=== PATIENT | male | born 2005 | race Hispanic/Latino ===

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

== ENCOUNTER 2024-05-15 13:59 | Emergency (ER) | payer BC, MEDICAID ==
[~2024-05-15] VITALS: Ht 172.7 cm; Wt 75.7 kg
--- NOTE | 2024-05-15 14:16 | EKG ---
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
[2024-05-15] MEDS: 0.9%NACL 1000ML 1,000 ML IV ONE (15:00)
[2024-05-15 15:01] LABS: APPEARANCE,URINE CLEAR (CLEAR); BILIRUBIN,URINE NEGATIVE (NEGATIVE); COLOR,URINE COLORLESS (YELLOW); GLUCOSE, URINE (UA) NEGATIVE (NEGATIVE); KETONES,URINE NEGATIVE (NEGATIVE); LEUKOCYTE ESTERASE ,URINE NEGATIVE Leu/uL (NEGATIVE); NITRATE,URINE NEGATIVE (NEGATIVE); OCCULT BLOOD,URINE NEGATIVE (NEGATIVE); PH,URINE 6.5 (5.0-8.0); PROTEIN,URINE NEGATIVE (NEGATIVE); UROBILINOGEN,URINE 0.2 mg/dL (0.2-1.0)
[2024-05-15 15:02] LABS: ADD UA MICROSCOPIC NO
[2024-05-15 15:15] LABS: AMPHET/METH SCREEN,URINE NEGATIVE (NEGATIVE); BARBITURATE SCREEN, URINE NEGATIVE (NEGATIVE); BENZODIAZEPINES SCREEN,URINE NEGATIVE (NEGATIVE); CANNABINOID SCREEN,URINE NEGATIVE (NEGATIVE); COCAINE SCREEN,URINE NEGATIVE (NEGATIVE); OPIATE SCREEN,URINE NEGATIVE (NEGATIVE); PHENCYCLIDINE SCREEN,URINE NEGATIVE (NEGATIVE)
[2024-05-15 15:27] LABS: BASOPHILS # (AUTO) 0.04 K/uL (0.00-0.20); BASOPHILS % (AUTO) 0.4 % (0.0-5.0); EOSINOPHILS # (AUTO) 0.06 K/uL (0.00-0.70); EOSINOPHILS % (AUTO) 0.6 % (0.0-8.0); HEMATOCRIT 42.8 % (42-54); IMMATURE GRANULOCYTE ABSOLUTE 0.04 K/uL (0-1); LYMPHOCYTES # (AUTO) 1.8 K/uL (1.0-4.8); LYMPHOCYTES % (AUTO) 16.6 % (21.0-51.0); MEAN CORPUSCULAR HEMOGLOBIN 28.2 pg (27.0-33.0); MEAN CORPUSCULAR HGB CONC 34.1 g/dL (32.0-36.0); MEAN CORPUSCULAR VOLUME 82.8 fL (80-100); MONOCYTES # (AUTO) 0.7 K/uL (0.1-1.0); MONOCYTES % (AUTO) 6.4 % (3.0-13.0); NEUTROPHILS # (AUTO) 8.2 K/uL (1.8-7.7); NEUTROPHILS % (AUTO) 75.6 % (40.0-77.0); PLATELET COUNT (AUTO) 259 K/uL (130-400); RED BLOOD CELL COUNT(AUTO) 5.17 MIL/uL (4.50-6.20); RED CELL DISTRIBUTION WIDTH 12.6 % (11.0-15.5); WHITE BLOOD COUNT (AUTO) 10.9 K/uL (4.8-10.8)
[2024-05-15 15:39] LABS: CREATININE 0.8 mg/dL (0.5-1.3); POTASSIUM 3.3 mmol/L (3.5-5.1)
[2024-05-15 15:42] LABS: MAGNESIUM 1.7 mg/dL (1.80-2.40)
--- NOTE | 2024-05-15 15:54 | ERN ---
General Chief Complaint: Withdrawl Stated Complaint: ALCOHOL WITHDRAWLS Time Seen by MD: 14:02 Time Seen by Midlevel: 14:02 Source: patient History of Present Illness Initial Comments Patient is a 18-year-old male with a past medical history of alcohol abuse presenting to the emergency department with palpitations. Patient believes he may be withdrawing from alcohol. However he does report he was an extensive history of anxiety. He reports that for the last two months he usually smokes 12 packs of beer per day. He last use alcohol two days ago. He currently denies any suicidal ideation, homicidal ideation, auditory/visual hallucinations. No other symptoms reported at this time Allergies: Coded Allergies: No Known Allergies (Unverified Allergy, Unknown, 05/15/24) Past Medical History Past Medical History: Alcoholism Past Surgical History: None ROS Dictation CONSTITUTIONAL: Negative except for HPI HEAD/FACE: Negative except for HPI EENT: Negative except for HPI RESPIRATORY: Negative except for HPI GASTROINTESTINAL/ABDOMINAL: Negative except for HPI GENITOURINARY: Negative except for HPI MUSCULOSKELETAL: Negative except for HPI INTEGUMENTARY: Negative except for HPI NEUROLOGICAL/PSYCH: Negative except for HPI HEMATOLOGIC/LYMPHATIC: Negative except for HPI All Systems Negative, Except as noted above. 13 point review of systems assessed and all negative except for above. Physical Exam Physical Exam Dictation Vital Signs reviewed General Appearance: Alert, oriented x 3, no acute distress, well developed, nourished. Head and Face: non-traumatic. Eyes: PERRL, pink conjunctivas, eyelid no trauma, anterior chamber with arcus senilis. Ears: Pinnas intact and no signs of trauma or erythema ear canals clear and no discharge TM no erythema Nose: No discharge, no bleeding. Oropharynx: Mouth normal, tongue pink, pharynx clear,no erythema, tonsils no exudates, no abscesses noted, mucous membrane moist Neck: Supple, non-tender, no thyromegaly, no masses, no JVD, no bruits Breast:Deferred Chest:No tenderness, no crepitus, no paradoxical movement, no retractions Lungs:Clear, well-ventilated, symmetric, no rales, no wheezing, no rhonchi, no stridor, good breath sounds bilaterally Heart: Regular rate, regular rhythm, no murmur, no gallops Vascular: no peripheral edema, Abdomen: Soft, positive bowel sounds, nondistended, no guarding, nontender, no rebound, no masses no hepatomegaly, no splenomegaly, no Toro's sign, no hernias. Rectal: Deferred Genital: Deferred Neurological: Normal speech, motor function intact, sensory function intact Musculoskeletal: Neck nontender, full range of motion, back nontender, full range of motion, Extremities: nontender, full range of motion Skin: Color pink, dry, no turgor, no rash, no lacerations, no abrasions, no contusions. Lymphatic: Deferred Results Laboratory and Microbiology Lab and Micro Result Laboratory Tests Test 05/15/24 14:10 05/15/24 15:05 Urine Color COLORLESS (YELLOW) Urine Appearance CLEAR (CLEAR) Urine pH 6.5 (5.0-8.0) Urine Specific [place] 1.004 (1.001-1.031) Urine Protein NEGATIVE mg/dL (NEGATIVE) Urine Glucose (UA) NEGATIVE mg/dL (NEGATIVE) Urine Ketones NEGATIVE mg/dL (NEGATIVE) Urine Occult Blood NEGATIVE (NEGATIVE) Urine Nitrate NEGATIVE (NEGATIVE) Urine Bilirubin NEGATIVE mg/dL (NEGATIVE) Urine Urobilinogen 0.2 mg/dL (0.2-1.0) Urine Leukocyte Esterase NEGATIVE Ivy/uL Urine Opiates Screen NEGATIVE (NEGATIVE) Urine Barbiturates Screen NEGATIVE (NEGATIVE) Urine Phencyclidine Screen NEGATIVE (NEGATIVE) Urine Amphetamines Screen NEGATIVE (NEGATIVE) Urine Benzodiazepines Screen NEGATIVE (NEGATIVE) Urine Cocaine Screen NEGATIVE (NEGATIVE) Urine Marijuana (THC) Screen NEGATIVE (NEGATIVE) White Blood Count 10.9 K/uL (4.8-10.8) H Red Blood Count 5.17 MIL/uL (4.50-6.20) Hemoglobin 14.6 g/dL (14.0-18.0) Hematocrit 42.8 % (42-54) Mean Corpuscular Volume 82.8 fL (80-100) Mean Corpuscular Hemoglobin 28.2 pg (27.0-33.0) Mean Corpuscular Hemoglobin Concent 34.1 g/dL (32.0-36.0) Red Cell Distribution Width 12.6 % (11.0-15.5) Platelet Count 259 K/uL (130-400) Mean Platelet Volume 10.5 fL (7.5-10.5) Immature Granulocyte % (Auto) 0.4 % (0-1) Neutrophils (%) (Auto) 75.6 % (40.0-77.0) Lymphocytes (%) (Auto) 16.6 % (21.0-51.0) L Monocytes (%) (Auto) 6.4 % (3.0-13.0) Eosinophils (%) (Auto) 0.6 % (0.0-8.0) Basophils (%) (Auto) 0.4 % (0.0-5.0) Neutrophils # (Auto) 8.2 K/uL (1.8-7.7) H Lymphocytes # (Auto) 1.8 K/uL (1.0-4.8) Monocytes # (Auto) 0.7 K/uL (0.1-1.0) Eosinophils # (Auto) 0.06 K/uL (0.00-0.70) Basophils # (Auto) 0.04 K/uL (0.00-0.20) Absolute Immature Granulocyte (auto 0.04 K/uL (0-1) Nucleated Red Blood Cells 0.0 % (0.0-0.19) Sodium Level 138 mmol/L (136-145) Potassium Level 3.3 mmol/L (3.5-5.1) L Chloride Level 101 mmol/L (101-111) Carbon Dioxide Level 26 mmol/L (21-32) Blood Urea Nitrogen 10 mg/dL (7-18) Creatinine 0.8 mg/dL (0.5-1.3) Glomerular Filtration Rate Calc 131 mL/min (>90) Random Glucose 91 mg/dL (70-105) Total Calcium 9.8 mg/dL (8.5-10.1) Magnesium Level 1.70 mg/dL (1.80-2.40) L Total Creatine Kinase 222 U/L (21-232) Troponin I High Sensitivity 4 ng/L (4-75) Labs Reviewed?: Yes MDM MDM: Patient is a 18-year-old male with a past medical history of alcohol abuse presenting to the emergency department with palpitations. Patient believes he may be withdrawing from alcohol. However he does report he was an extensive history of anxiety. He reports that for the last two months he usually smokes 12 packs of beer per day. He last use alcohol two days ago. He currently denies any suicidal ideation, homicidal ideation, auditory/visual hallucina tions. No other symptoms reported at this time. Physical examination is unremarkable. CBC is stable. Chemistries are unremarkable. Toxicology is negative. Urine does not show any evidence of infection. CK and troponin are negative. Patient was observed in the ER for over 2 hours and has remained stable. On repeat examination patient was asymptomatic. He reports feeling si gnificantly improved and believes he may have had an anxiety attack. His lab discussed with the patient. Patient will be discharged home return precautions discussed Differential diagnosis: Alcohol withdrawals, electrolyte abnormality, dehydration There are no social concerns with this patient. Prescription drug management Prescriptions will include: None Medical management and examination interpretation discussions were had by me with other qualified healthcare professionals as indicated for the patient's care. ED Course Orders Procedure Category Date Status Time 12 Lead Ekg Tracing- EKG 05/15/24 Resulted Technical 14:07 Urinalysis Profile LAB 05/15/24 Complete 14:07 Drug Screen Urine LAB 05/15/24 Complete 14:07 Cbc With Differential LAB 05/15/24 Complete 14:45 Basic Metabolic Panel LAB 05/15/24 Complete 14:45 Creatine Kinase, Total LAB 05/15/24 Complete 14:45 Troponin I High LAB 05/15/24 Complete Sensitivity 14:45 Magnesium LAB 05/15/24 Complete 14:45 0.9%Nacl 1000ml (Ns PHA 05/15/24 Complete 1000ml) 15:00 Potassium Bicarb/Cit PHA 05/15/24 Complete Ac 25meq (K-Lyte Ta 16:00 Current Medications Medications (Trade) Dose Ordered Sig/Arnulfo Route PRN Reason Start Time Stop Time Status Last Admin Dose Admin Potassium Bicarbonate (K-Lyte Tablet Eff 25 Meq Tablet.eff) 25 meq ONCE ONCE PO 05/15/24 16:00 05/15/24 16:01 DC 05/15/24 16:01 Sodium Chloride 1,000 ml @ 0 mls/hr ONCE ONCE IV 05/15/24 15:00 05/15/24 15:01 DC 05/15/24 15:00 Vital Signs Date Time Temp Pulse Resp B/P (MAP) Pulse Ox O2 Delivery O2 Flow Rate FiO2 05/15/24 16:44 98.2 82 18 148/78 100 Room Air* 0 21 05/15/24 14:14 98.2 88 18 171/85 100 Room Air* 0 21 12/11/24 14:01 98.2 98 18 171/85 100 Room Air 0 DX & DISP Disposition: Discharge Departure Impression: Primary Impression: History of alcohol abuse Additional Impression: Hypokalemia Condition: Stable Additional Instructions: Your blood work today is unremarkable. Your potassium was slightly low today. This was replaced in the emergency department. The remainder of your electrolytes were normal. Your cardiac enzymes are negative. Your EKG does not show any evidence of a heart attack. Your kidney function is normal. Referrals: JUDE LINDA (PCP) Time of Disposition: 15:55 I have reviewed the case, and I agree with, Diagnosis and Plan I performed the substantive portion of the visit. I have reviewed and personally made and approve the management plan that is documented in the note by myself or the DORIS. I acknowledge for responsibility for the patient's management plan. ADALI MCCRARY May 15, 2024 15:54
[2024-05-15] MEDS: PoTASSium BIcarbonate/CIT AC 25 MEQ TABLET.EFF PO ONE (16:01)
[2024-05-15 16:44] VITALS: BP 148/78; PULSE 82; RESP 18; TEMP 98.2; O2SAT 100
== END 2024-05-15 16:44 | disposition home or self-care (01) ==
LOC: EDH 13:59
DX: E87.6 Hypokalemia (principal); F10.10 Alcohol abuse, uncomplicated; F17.200 Nicotine dependence, unspecified, uncomplicated
CPT/HCPCS: 36415; 80048; 80305; 81003; 82550; 83735; 84484; 85025; 93005; 99284

== ENCOUNTER 2024-08-19 16:14 | Emergency (ER) | payer BC ==
[~2024-08-19] VITALS: Ht 172.7 cm; Wt 74.8 kg
--- NOTE | 2024-08-19 16:45 | ERN ---
ED Note History of Present Illness Stated Complaint: FEELING LOW Chief Complaint: Other Problems Time Seen by MD: 16:14 Dictation: History of present illness: 19-year-old male with past medical history of anxiety, hypokalemia presented to ED with complaints of feeling low/dizzy since past 2 hours. As per the patient the last time she felt the same was diagnosed with hypokalemia and alcohol withdrawal syndrome. His last alcohol intake was yesterday he consumed 4-5 beer. He denies any shortness of breath, chest pain, abdominal pain change in bowel or bladder habits, tremor, change in vision, headache, nausea, vomiting. At the time of presentation , his blood pressure is 141/87, heart rate is 62, temperature 98.7, respiratory rate 16 per minute. Allergies: Coded Allergies: No Known Allergies (Unverified Allergy, Unknown, 05/15/24) Past Medical History Past Medical History: Alcoholism Surgical History: None Review of System Dictation REVIEW OF SYSTEMS Positive for low mood, dizziness CONSTITUTIONAL: Denies fevers, chills, or night sweats. No unintentional weight loss reported. ENT: No hearing loss, otalgia, otorrhea, rhinitis, rhinorrhea, hoarseness, or sore throat. CARDIOVASCULAR: Denies any exertional angina, dyspnea on exertion, orthopnea, paroxysmal nocturnal dyspnea, palpitations claudication. PULMONARY: Denies any shortness of breath, cough, phlegm / sputum, hemoptysis, pleuritic chest pain. SLEEP: Denies morning headaches, daytime somnolence or napping. Denies difficulty falling asleep, staying asleep, waking from sleep. Denies knowledge of snoring. GASTROINTESTINAL: Denies any type of dysphagia to either liquids or solids. Denies nausea, vomiting, abdominal pain, diarrhea, constipation, blood in stools . NEUROLOGICAL: Denies headache, motor weakness, sensory deficit, vertigo / spinning sensation, gait abnormalities, or tremors. GENITOURINARY: Denies frequency, urgency, nocturia, hematuria or incontinence, low urinary stream, straining to void, urinary intermittency or hesitancy ENDOCRINOLOGY: Denies polyuria, polydipsia, polyphagia or heat / cold intolerance. HEMATOLOGY: Denies thrombophilia / previous clots, or coagulopathy / bleeding disorders. ONCOLOGIC: Denies personal history of malignancy. DERMATOLOGIC: Denies rashes or pruritus. PSYCHIATRIC: Denies any suicidal or homicidal ideation. Denies hallucinations. Initial Vital Sign VS Vital Signs Date Time Temp Pulse Resp B/P (MAP) Pulse Ox O2 Delivery O2 Flow Rate FiO2 08/19/24 16:22 98.8 62 16 141/87 98 Room Air 08/19/24 17:17 0 21 Physical Exam Dictation PHYSICAL EXAM GENERAL APPEARANCE: Well nourished . Awake and alert. Oriented to time, place and person. No acute cardiopulmonary distress. HEENT: Head normocephalic , atraumatic. Sclera anicteric . Pupils are round and reactive. Extraocular movements intact . No conjunctival injection. No nasal congestion. No throat congestion .Oral mucosa moist. NECK: Supple. No JVD. No thyromegaly. No submental, submandibular, pre-/pos tauricular, occipital or supraclavicular lymphadenopathy. No carotid bruits. CHEST: Normal chest expansion. No Telemetry. LUNGS: Clear to auscultation bilaterally . No rales, rhonchi or any wheezing. Equal tactile fremitus. Resonant to percussion . CARDIOVASCULAR: Regular rate and rhythm. S1 and S2 normal. No rubs, murmurs or gallops. ABDOMEN: Soft, nontender, and nondistended. There is no rebound tenderness, voluntary guarding, or rigidity. No hepatosplenomegaly. Bowel sounds normal in all four quadrants . NEUROLOGICAL: Cranial nerves II-XII grossly intact. Motor is 5/5 in bilateral upper and lower extremities . No sensory deficits. EXTREMITIES: No edema, No cyanosis , No clubbing. Good capillary refill. SKIN: No skin breakdown. No rashes or lesions . PSYCHIATRY: Normal affect .No auditory or visual hallucinations. Normal speech. No dysarthria. Results (Laboratory/Radiology) Laboratory/Radiology Laboratory Tests Test 08/19/24 17:20 08/19/24 18:36 White Blood Count 6.5 K/uL (4.8-10.8) Red Blood Count 4.96 MIL/uL (4.50-6.20) Hemoglobin 14.0 g/dL (14.0-18.0) Hematocrit 41.3 % (42-54) L Mean Corpuscular Volume 83.3 fL (80-100) Mean Corpuscular Hemoglobin 28.2 pg (27.0-33.0) Mean Corpuscular Hemoglobin Concent 33.9 g/dL (32.0-36.0) Red Cell Distribution Width 13.2 % (11.0-15.5) Platelet Count 251 K/uL (130-400) Mean Platelet Volume 10.4 fL (7.5-10.5) Nucleated Red Blood Cells 0.0 % (0.0-0.19) Sodium Level 135 mmol/L (136-145) L Potassium Level 3.4 mmol/L (3.5-5.1) L Chloride Level 98 mmol/L (101-111) L Carbon Dioxide Level 32 mmol/L (21-32) Blood Urea Nitrogen 9 mg/dL (7-18) Creatinine 0.8 mg/dL (0.5-1.3) Glomerular Filtration Rate Calc 130 mL/min (>90) Random Glucose 106 mg/dL (70-105) H Total Calcium 9.1 mg/dL (8.5-10.1) Urine Color LIGHT-YELLOW (YELLOW) Urine Appearance CLEAR (CLEAR) Urine pH 6.5 (5.0-8.0) Urine Specific [place] 1.033 (1.001-1.031) Urine Protein 20 mg/dL (NEGATIVE) H Urine Glucose (UA) NEGATIVE mg/dL (NEGATIVE) Urine Ketones NEGATIVE mg/dL (NEGATIVE) Urine Occult Blood NEGATIVE (NEGATIVE) Urine Nitrate NEGATIVE (NEGATIVE) Urine Bilirubin NEGATIVE mg/dL (NEGATIVE) Urine Urobilinogen 2.0 mg/dL (0.2-1.0) H Urine Leukocyte Esterase NEGATIVE Ivy/uL Urine RBC 2-5 /HPF (0-1) H Urine WBC 2-5 /HPF (0-1) H Urine Bacteria None /HPF (None Seen) Urine Opiates Screen NEGATIVE (NEGATIVE) Urine Barbiturates Screen NEGATIVE (NEGATIVE) Urine Phencyclidine Screen NEGATIVE (NEGATIVE) Urine Amphetamines Screen NEGATIVE (NEGATIVE) Urine Benzodiazepines Screen NEGATIVE (NEGATIVE) Urine Cocaine Screen NEGATIVE (NEGATIVE) Urine Marijuana (THC) Screen NEGATIVE (NEGATIVE) EKG Comment: EKG : Regular sinus rhythm, ventricular rate 63 beats per minute MA interval 161, QTC 377 Normal axis Total QRS complexes seen on chest leads No ST segment elevation or depression seen ED Course ED Course Orders Procedure Category Date Status Time Cbc Without LAB 08/19/24 Complete Differential 16:40 Basic Metabolic Panel LAB 08/19/24 Complete 16:40 12 Lead Ekg Tracing- EKG 08/19/24 Complete Technical 16:40 Urinalysis Profile LAB 08/19/24 Complete 16:40 Drug Screen Urine LAB 08/19/24 Complete 16:40 Potassium Chloride PHA 08/19/24 Complete 20meq Er (K-Dur/Klor- 19:00 0.9% Nacl 500ml PHA 08/19/24 Complete Iv.Soln (Ns 500ml 19:00 Current Medications Medications (Trade) Dose Ordered Sig/Arnulfo Route PRN Reason Start Time Stop Time Status Last Admin Dose Admin Potassium Chloride (K-Dur/Klor-Con 20meq) 20 meq ONCE ONCE PO 08/19/24 19:00 08/19/24 19:01 DC 08/19/24 19:16 Sodium Chloride 500 ml @ 500 mls/hr Q1H ONCE IV 08/19/24 19:00 08/19/24 19:05 DC Vital Signs Date Time Temp Pulse Resp B/P (MAP) Pulse Ox O2 Delivery O2 Flow Rate FiO2 08/19/24 18:43 98.6 68 20 124/72 100 Room Air* 0 21 08/19/24 17:17 98.6 64 20 128/69 100 Room Air* 0 21 08/19/24 16:22 98.8 62 16 141/87 98 Room Air Medical Decision Making MDM Differential diagnosis : Electrolyte abnormality, dehydration, drug intoxication Rationale: Tests considered and ordered secondary to shared decision making include: I will re-evaluate the patient after treatment and diagnostic exams have returned to determine whether they require further testing, can be safely disch arged home, or need admission for further treatment and evaluation. Given the social determinants of health affecting care, including literacy, access to medical care, prescription drug management, and [id number] drugs, I will ensure that treatment plans are tailored accordingly. There are no social concerns with this patient. Risk of complication and/or morbidity or mortality of patient management: None Need for hospitalization: Patient does not meet criteria for hospitalization. Need for emergency major/minor surgery: No Prescription drug management Prescriptions will include symptomatic care Medications-Per medication reconciliation Previous outside records reviewed: Old ER visits. Patient's prior external medical records from other ER visits were reviewed by me as indicated. Prior testing and results from previous visits were reviewed. Prior tests were taken into account with medical decision making and resource utilization, independent historian/historians were used to obtain complete medical history. I independently interpreted the test that were performed, results were reviewed by me and considered findings on radiology. Medical management and examination interpretation discussions was done by me with other qualified healthcare professionals as indicated for the patient's care. Revaluation: Hemodynamically stable. His labs showed potassium 3.4, sodium 135. We treated him with IV normal saline and oral potassium chloride . Disposition : Home DX & DISP Disposition: Discharge Departure Impression: Primary Impression: Hypokalemia Additional Impression: History of alcohol abuse Condition: Stable Additional Instructions: Follow-up with primary care provider in 1-2 days Take medications as directed here in the emergency room. It is okay to continue home medications unless otherwise discussed during your visit in the emergency room today. Increase oral hydration. Return to your nearest emergency room if symptoms worsen or if there is no improvement. Call 911 if you need immediate assistance. Referrals: JUDE LINDA (PCP) I WAS PRESENT AND PARTICIPATED IN THE CARE OF THIS PATIENT ALONGSIDE WITH THE RESIDENT PHYSICIAN. I HAVE REVIEWED AND PERSONALLY MADE AND APPROVED THE MANAGEMENT PLAN THAT IS DOCUMENTED IN THE NOTE BY MYSELF WITH THE RESIDENT PHYSICIAN. I ACKNOWLEDGED FOR RESPONSIBILITY FOR THE PATIENT'S MANAGEMENT PLAN. ESTELA GONZALEZ MD Aug 19, 2024 16:45 JUSTYN SHEA MD Aug 21, 2024 09:09
[2024-08-19 17:26] LABS: HEMATOCRIT 41.3 % (42-54); MEAN CORPUSCULAR HEMOGLOBIN 28.2 pg (27.0-33.0); MEAN CORPUSCULAR HGB CONC 33.9 g/dL (32.0-36.0); MEAN CORPUSCULAR VOLUME 83.3 fL (80-100); RED BLOOD CELL COUNT(AUTO) 4.96 MIL/uL (4.50-6.20); RED CELL DISTRIBUTION WIDTH 13.2 % (11.0-15.5); WHITE BLOOD COUNT (AUTO) 6.5 K/uL (4.8-10.8)
[2024-08-19 17:36] LABS: CREATININE 0.8 mg/dL (0.5-1.3); POTASSIUM 3.4 mmol/L (3.5-5.1)
[2024-08-19 18:43] VITALS: BP 124/72; PULSE 68; RESP 20; TEMP 98.6; O2SAT 100
[2024-08-19 18:50] LABS: APPEARANCE,URINE CLEAR (CLEAR); BILIRUBIN,URINE NEGATIVE (NEGATIVE); COLOR,URINE LIGHT-YELLOW (YELLOW); GLUCOSE, URINE (UA) NEGATIVE (NEGATIVE); KETONES,URINE NEGATIVE (NEGATIVE); LEUKOCYTE ESTERASE ,URINE NEGATIVE Leu/uL (NEGATIVE); NITRATE,URINE NEGATIVE (NEGATIVE); OCCULT BLOOD,URINE NEGATIVE (NEGATIVE); PH,URINE 6.5 (5.0-8.0); PROTEIN,URINE 20 mg/dL (NEGATIVE)
[2024-08-19 18:51] LABS: ADD UA MICROSCOPIC YES
[2024-08-19 18:52] LABS: MUCUS,URINE RARE LPF (None Seen)
[2024-08-19 18:58] LABS: AMPHET/METH SCREEN,URINE NEGATIVE (NEGATIVE); BARBITURATE SCREEN, URINE NEGATIVE (NEGATIVE); BENZODIAZEPINES SCREEN,URINE NEGATIVE (NEGATIVE); CANNABINOID SCREEN,URINE NEGATIVE (NEGATIVE); COCAINE SCREEN,URINE NEGATIVE (NEGATIVE); OPIATE SCREEN,URINE NEGATIVE (NEGATIVE); PHENCYCLIDINE SCREEN,URINE NEGATIVE (NEGATIVE)
[2024-08-19] MEDS ORDERED: 0.9% NACL 500ML IV.SOLN 500 ML IV ONE (19:00)
[2024-08-19] MEDS: PoTASSium chloRIDE 20MEQ ER 20 MEQ ERTAB PO ONE (19:16)
--- NOTE | 2024-08-19 20:08 | EKG ---
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
== END 2024-08-19 19:19 | disposition home or self-care (01) ==
LOC: EDH 16:14
DX: E87.6 Hypokalemia (principal); F10.239 Alcohol dependence with withdrawal, unspecified
CPT/HCPCS: 36415; 80048; 80305; 81001; 85027; 93005; 99284

== ENCOUNTER 2025-01-26 05:18 | Emergency (ER) | payer BC ==
[~2025-01-26] VITALS: Ht 172.7 cm; Wt 77.1 kg
[2025-01-26 05:31] VITALS: TEMP 97.7
--- NOTE | 2025-01-26 05:51 | ERN ---
ED Note History of Present Illness Stated Complaint: RT ARM PAIN Chief Complaint: Upper Extremity Pain/Injury Time Seen by MD: 05:30 Dictation: This is a 19-year-old male who presented to the emergency room complaining of his right arm pain. Apparently he was drinking heavily at least 15 beers prior to presentation. After he drank heavily he called [place] police for a ride to hospital as ambulance was taking too long. He did not fall he denied being in any physical altercation. Patient is extremely intoxicated but able to answ er simple questions No history of any trauma. No history of any surgeries Temperature 97.7 pulse 111 respirations 16 blood pressure 157/85 with a pulse oximetry of 100% on room air History of alcoholism, anxiety and tobacco abuse Allergies: Coded Allergies: No Known Allergies (Unverified Allergy, Unknown, 05/15/24) Past Medical History Past Medical History: No Pertinent History, Alcoholism Surgical History: None Family History: Negative Social History: Smokers, ETOH RN Note Reviewed/Agreed w/PFSH: Yes Review of System Dictation Constitutional: Negative for fever,chills, and weight loss Eyes: Negative for injury, pain,redness, and discharge ENT: Negative for injury,pain or swelling Cardiovascular: Negative for chest pain, palpitations, and edema Respiratory: Negative for shortness of breath, cough, and wheezing, Abdomen/GI: Negative for abdominal pain, nausea, vomiting, diarrhea, and constipation Back: Negative for injury and pain : Negative for injury, bleeding and discharge MS/Extremity: Negative for injury and deformity positive for right upper extremity pain Skin: Negative for rash, and discoloration Neuro: Negative for headache, weakness, numbness, tingling, and seizure Psych: Negative for suicide ideation, homicidal ideation, and hallucinations Initial Vital Sign VS Vital Signs Date Time Temp Pulse Resp B/P (MAP) Pulse Ox O2 Delivery O2 Flow Rate FiO2 01/26/25 05:20 97.7 111 16 157/85 100 Room Air 01/26/25 05:31 0 21 Physical Exam Dictation General: awake, alert, NAD very intoxicated slurred speech Head/Face: Normocephalic, atraumatic Eyes: PERRL, EOMI, vision at baseline ENT: oral cavity clear, TMs clear, no signs of infection Neck: Trachea midline, supple, no nuchal rigidity Cardiovascular: RRR, normal S1/S2, No MRGs, no JVD Respiratory: CTAB, no respiratory distress, No rales or wheezes Abdomen: Soft, non-tender, non-distended, normal bowel sounds, no guarding or rebound. Skin: Warm, dry, normal turgor, no rash MS/Extremity: Pulses equal, no cyanosis, neurovascular intact, FROM no deformity of the right upper extremity no erythema. Pain extending from right shoulder to the elbow Neuro: COAx4, GCS 15, strength 5/5, CN 2-12 intact, normal cerebellar exam, normal gait, Psych: Normal behavior, mood, and affect normal Extremities-trace edema without any palpable cords, Homans sign is negative Results (Laboratory/Radiology) Labs Reviewed?: Yes ED Course ED Course Orders Procedure Category Date Status Time Ketorolac PHA 01/26/25 Complete Tromethamine 30mg/Ml 06:00 Folic Acid 5 Mg/Ml PHA 01/26/25 Complete Vial (Folvite 5 Mg/Ml 09:00 Folic Acid 5 Mg/Ml PHA 01/26/25 In Process Vial (Folvite 5 Mg/Ml 06:30 Current Medications Medications (Trade) Dose Ordered Sig/Arnulfo Route PRN Reason Start Time Stop Time Status Last Admin Dose Admin Folic Acid 1 mg/ Thiamine HCl 100 mg/Sodium Chloride 1,010 ml @ 100 mls/hr DAILY IV 01/26/25 09:00 01/26/25 06:16 DC Folic Acid 1 mg/ Thiamine HCl 100 mg/Sodium Chloride 1,010 ml @ 100 mls/hr Q24H IV 01/26/25 06:30 01/28/25 16:35 01/26/25 06:38 Ketorolac Tromethamine (toRADol) 30 mg ONCE ONCE IM 01/26/25 06:00 01/26/25 06:01 DC Vital Signs Date Time Temp Pulse Resp B/P (MAP) Pulse Ox O2 Delivery O2 Flow Rate FiO2 01/26/25 06:54 100 16 131/85 98 Room Air* 0 21 01/26/25 05:31 97.7 109 18 130/87 98 Room Air* 0 21 01/26/25 05:20 97.7 111 16 157/85 100 Room Air We will administer medications according to the patient's complaint. Once the results are available, will review and personally interpreted the labs to rule out any acute life-threatening emergency the trach require immediate intervention and treatment. I will then re-evaluate the patient after treatment and diagnostic exams have return to determine whether the patient requires any further testing, can safely be discharged home or need further admission to hospital for additional treatment and evaluation. Banana bag and pain medication for his right arm. Many to let him sober up before discharge Medical Decision Making MDM Differential diagnosis: Alcohol-induced neuropathy, alcohol induced myopathy, rhabdomyolysis, dehydration induced alcoholic damage Rationale: Tests considered and ordered secondary to shared decision making include: Previous outside records reviewed: Old ER visits. Risk of complication and/or morbidity or mortality of patient management: None Medications-Per medication reconciliation Need for hospitalization: Patient does not meet criteria for hospitalization. Need for emergency major/minor surgery: No There are no social concerns with this patient. Prescription drug management Prescriptions will include symptomatic care Patient's prior external medical records from other ER visits were reviewed by me as indicated. Prior testing and results from previous visits were reviewed. Prior tests were taken into account with medical decision making and resource utilization, independent historian/historians were used to obtain complete medical history. I independently interpreted the test that were performed, results were reviewed by me and considered findings on radiology if ordered. Medical management and examination interpretation discussions were had by me with other qualified healthcare professionals as indicated for the patient's care. Problem List Problem List: (1) Right arm pain (2) Alcohol intoxication (3) Neuropathy, alcoholic DX & DISP Disposition: Discharge Departure Impression: Primary Impression: Right arm pain Additional Impressions: Alcohol intoxication, Neuropathy, alcoholic Condition: Stable Additional Instructions: Patient and the caregiver have been informed of all the diagnostic tests and the imaging conducted during the today's visit to the emergency room and has verbalized understanding of the results I have personally reviewed and interpreted all diagnostic exams performed here in the ER today as well as the vital signs documented by the nursing staff. The patient is now being discharged to home and should follow up with the primary care physician or the specialist as directed by the ER staff. Follow-up with primary care provider in 1 to 2 days. Take medications as directed here in the emergency room. Okay to continue home medications unless otherwise discussed during your visit in the emergency room today. Return to your nearest emergency room if symptoms worsen or if there is no improvement. Call 911 if you need immediate assistance. Take Tylenol or Motrin [id number] as needed and if no contraindications are present. Increase oral hydration. A wound culture or urine culture was ordered here in the emergency room department please follow-up with primary care provider and advise them to get repeat ports from our facility. If you had any Filiberto wrap/splints that were applied here, please do not remove them until you see your primary care or specialty. Referrals: JUDE LINDA (PCP) TANYA LY MD Jan 26, 2025 05:51
--- NOTE | 2025-01-26 06:09 | NUR ---
PT REQUEST TO SPEAK TO ED MD LY. ED MADE AWARE.
[2025-01-26] MEDS: FOLic ACID 5 MG/ML VIAL 1 MG, THIAMINE HCL 100 MG in 0.9%NACL 1000ML 1,000 ML IV SCH (06:38)
--- NOTE | 2025-01-26 07:07 | NUR ---
REPORT GIVEN TO RACHEL AMOS AT THIS TIME
--- NOTE | 2025-01-26 07:22 | NUR ---
PT CALLED ME INTO THE ROOM VIA CALL LIGHT TO STATE THAT HIS PARTNER IS NOT NEEDED IN THE ROOM ANYMORE. EDUCATED HIM THAT THE PERSON MUST EXIT THE ROOM IF THE PATIENT EXPRESSES TO REMOVE THEM. PARTNER EXITED ROOM.
[2025-01-26 07:24] VITALS: BP 136/93; PULSE 101; RESP 20; O2SAT 100
[2025-01-26] MEDS ORDERED: FOLic ACID 5 MG/ML VIAL 1 MG, THIAMINE HCL 100 MG in 0.9%NACL 1000ML 1,000 ML IV SCH (09:00)
== END 2025-01-26 07:33 | disposition home or self-care (01) ==
LOC: EDH 05:18
DX: M79.601 Pain in right arm (principal); F17.200 Nicotine dependence, unspecified, uncomplicated; G62.1 Alcoholic polyneuropathy; F41.9 Anxiety disorder, unspecified; R47.81 Slurred speech; F10.129 Alcohol abuse with intoxication, unspecified; Y90.9 Presence of alcohol in blood, level not specified
CPT/HCPCS: 99284; 96365; J1885; J7030; J3411; J3490